=== PATIENT | male | born 1960 | race Caucasian/White ===

== ENCOUNTER 2017-05-17 10:31 | Day surgery (SDC) | payer OTHER ==
[2017-05-17] VITALS (9 sets, daily range): BP systolic 128–162; BP diastolic 70–96; PULSE 75–86; RESP 12–17; O2SAT 95–98
[~2017-05-17] VITALS: Ht 177.8 cm; Wt 83.4 kg
[~2017-05-17 10:31] MED LIST: CALC0.257 PO; CeFAZolin 2 Gm/50 mL D5W IV Premix IV SCH; HSC.125T PO; LEVO137T2 PO; Lactated Ringer's 1,000 ML IV SCH; PANT20T PO; TAMS0.4C29 PO; TERB30CR15 TOPICAL; ZOLP5TAB6 PO
[2017-05-17] MEDS ORDERED: fentaNYL-PF 50 mCg/mL 2 mL Inj ONE (10:32)
[2017-05-17] MEDS ORDERED: Dexamethasone 4 mg/mL Inj ONE (10:32)
[2017-05-17] MEDS ORDERED: MetoCLOpramide 5 mg/mL 2 mL Inj ONE (10:32)
[2017-05-17] MEDS ORDERED: Ondansetron 2 mg/mL 2 mL Inj ONE (10:32)
[2017-05-17] MEDS: Lactated Ringer's 1,000 ML IV SCH ×2 (11:42→12:56)
[2017-05-17] MEDS ORDERED: Lactated Ringer's 1,000 ML IV SCH (13:11)
[2017-05-17] MEDS ORDERED: Lactated Ringer's 500 ML IV PRN (13:11)
[2017-05-17] MEDS ORDERED: Lidocaine PF 1% 30 mL Inj INFILTRATE ONE (13:13)
[2017-05-17] MEDS ORDERED: Ropivacaine-PF 0.5% 30 mL Inj INFILTRATE ONE (13:14)
[2017-05-17] MEDS ORDERED: Ondansetron 2 mg/mL 2 mL Inj IVPUSH PRN (13:15)
[2017-05-17] MEDS ORDERED: Atropine 0.4 mg/mL Inj IVPUSH PRN (13:15)
[2017-05-17] MEDS ORDERED: Phenylephrine 10,000 mCg/mL Inj IVPUSH PRN (13:15)
[2017-05-17] MEDS ORDERED: Labetalol 5 mg/mL 20 mL Inj IV PRN (13:15)
[2017-05-17] MEDS ORDERED: MetoCLOpramide 5 mg/mL 2 mL Inj IVPUSH PRN (13:15)
[2017-05-17] MEDS ORDERED: EPHEDrine Sulfate 50 mg/mL Inj IVPUSH PRN (13:15)
[2017-05-17] MEDS ORDERED: fentaNYL-PF 50 mCg/mL 2 mL Inj IVPUSH PRN (13:15)
--- NOTE | 2017-05-17 13:34 | PCM.HPANE ---
Patient Data Surgeon Admitting Provider: Attending Provider:Donnie Garcia MD Primary Care Physician:Sommer Keyes MD Other Provider:Noemy Minaingham Anesthesia Reason for Visit Right Meniscal Tear Ht/WT & BMI Height (Feet): 5 Height (Inches): 10.00 Weight (Kilograms): 83.400 Body Mass Index 26.00 Allergies Coded Allergies: morphine (Verified Allergy, Severe, Nausea,Vomiting, 05/11/17) PER PT Past Anesthesia History Anesthesia History: Denies:: Abnormal Airway, Anesthesia Reactions, Difficult Intubation, Fam Anesthesia Reaction, Fam Malignant Hypertherm, Malignant Hyperthermia Diabetes History Hx Diabetes?: No MRSA MRSA: No Medications Home Meds Incl Beta Alexi: No Reported Medications Terbinafine Cream 30 Gm Cream..g.1 Applic TOPICAL #30 GM 05/11/17 Hyoscyamine Sulfate (Levsin)0.125 Mg Tab0.125 Mg PO 05/11/17 Calcitriol (Rocaltrol)0.25 Mcg Capsule0.5 Mcg PO 06/16/16 Zolpidem 5 Mg [id number] Mg PO HS PRN For Insomnia 04/21/15 Tamsulosin ER 0.4 Mg Cap.er.24h0.4 Mg PO DAILY 30 Days Ref 0 04/21/[address] (Protonix)20 Mg [id number] Mg PO DAILY 30 Days Ref 0 04/21/15 Levothyroxine 137 Mcg [id number] Mcg PO DAILY 30 Days Ref 0 04/21/15 Discontinued Reported Medications Hydrocodone-Acetaminophen 5-325 mg 1 Each Tablet1 Each PO Q4 PRN For Pain Ref 0 04/21/15 History History of ENT Problems?: No HEENT History: Denies:: Abnormal Airway Cataracts Difficult Intubation Dysphagia Glaucoma Hearing Problem Sinus Problem TMJ Denture Type: None Teeth Condition: Within Normal Limits Hx of Heart Problems?: No Cardiovascular History: Denies:: AICD Abdominal Aortic Aneurism Atrial Fibrillation Cardiac Surgery Chest Pain Congestive Heart Failure Coronary Artery Disease Edema Heart Murmur Hypertension Irregular Heartbeat Pacemaker Peripheral Vascular Rheumatic Fever Thrombophlebitis Valvular Heart Disease Hx of Respiratory Problem?: No Respiratory History: Denies:: Asthma COPD Chest Surgery Cough Dyspnea Emphysema Hemoptysis Oxygen Administration Pneumonia Pulmonary Embolism Tuberculosis Use of C-PAP Machine Use of Inhalers / NEBS Hx Neurologic Problems?: No Neurological History: Denies:: Alzheimer's Disease CVA Dementia Dizziness Headaches Multiple Sclerosis Parkinson's Disease Peripheral Neuropathy Seizures TIA Hx of GI Problems?: Yes Gastrointestinal History: Positive for:: Gastroesphageal Reflux (mild, able to lay flat when sleeping without any heartburn) Denies:: Cirrhosis Diverticulitis Gall Bladder Disease Gastrointestinal Bleeding Heartburn Hepatitis Hiatal Hernia Liver Disease Rectal Bleeding Hx of Problems?: No Genitourinary History: Denies:: HX of Hemodialysis Kidney Stones Urinary Tract Infection HX of Peritoneal Dialysis: No Male Hx: Denies:: Prostate Problems Scrotal Mass Testicular Surgery Skin History: Denies:: History Skin Disorders? Pressure Ulcers Hx Musculoskeletal Problems?: No Musculoskeletal History: Denies:: Back Injury Degenerative Joint Fibromyalgia Joint Replacement Musculoskeletal Trauma Myasthenia Gravis Osteoarthritis Rheumatoid Arthritis Systemic Lupus Hx of Psycho/Social Problems?: No Psycho Social History: Denies:: Anxiety Bipolar Disorder Hx Depression Suicide Attempt Hx Surgeries?: Yes (SPLENECTOMY, THYROIDECTOMY, CLAVICLE BX) Hx Any Other Health Problems?: No Other History: Positive for:: [facility] Hospitalization ([facility]) Denies:: Thyroid Disease (removed) History Blood Transfusions: Positive for:: Accept Blood Products? Denies:: Blood Transfusions Hx Diabetes: No Hx Alcohol Use: NoHx Substance Use: No Smoking Status: Never Smoker Stop/Bang S-Snoring: Do You Snore Loudly: No T-Tired: feel tired, fatigued: Yes O-Obsered: Observed not breath: No P-Blood Pressure: treated: No B- Body Mass Index > 35 kg/m2: No A- Age over 50: Yes N- Neck Large Circumference: No G- Gender Male: Yes MARGARETTE Total Score: 3 Risk Assessment Category Category 1A: Patient has history of documented sleep apnea, and HAS NOT received any narcotic, sedative or anesthesia administration during this stay. Category 1B: Patient has history of documented sleep apnea, and HAS received any narcotic , sedative or anesthesia administration during this stay Category 2: Patient has SUSPECTED Obstructive Sleep Apnea, and HAS received any narcotic , sedative or anesthesia administration during this stay. Category 3: Patient has SUSPECTED Obstructive Sleep Apnea and HAS NOT received narcotic, sedative or anesthesia administration during this stay. Category 4: Outpatient in Procedural Areas with known sleep apnea or who screen positive for High Risk via the STOP/BANG questionnaire. Exam Exam Vital Signs Vital Signs Date Time Temp Pulse Resp B/P Pulse Ox O2 Delivery O2 Flow Rate FiO2 05/17/17 10:57 36.5 78 15 128/70 95 Room Air General Appearance: Alert, Oriented X3, Cooperative, No Acute Distress HEENT/AIRWAY: MP 2, Neck Movement (FROM), Mouth Opening (3 FBMO) Lungs: Clear to Auscultation, Normal Air Movement Heart: Exam Unremarkable, Regular Rate/Rhythm, No Murmurs/Rubs/Gallops Meds/Labs/Diagnostics Admission Meds Current Medications Lactated Ringer's (Lr) 1,000 ml @ 120 mls/hr Q8H20M IV Last administered on t 11:42; Start 05/17/17 at 05:00; Stop 05/17/17 at 13:19 Plan Impression Patient chart reviewed, patient interviewed and anesthestic plan with risks, benefits, and alternatives discussed, and informed consent obtained. NPO per Anesth. Guidelines: Yes ASA Physical Status: ASA2 Mod Systemic Disease Anesthetic Plan: GA Bene/Risks/Altern/Consents: Yes HP Complete Prior to Induction: Yes Shahab Gonzalez MD May 17, 2017 12:14
[2017-05-17] MEDS ORDERED: HYDROcodone-APAP 5-325 mg Tablet PO PRN (13:45)
[2017-05-17] MEDS ORDERED: Ketorolac 15 mg/mL Inj IVPUSH ONE (13:45)
--- NOTE | 2017-05-17 13:49 | PCM.ORTHOP ---
Orthopedic Operative Report Date of Service: May 17, 2017 Pre Operative Diagnosis Right knee medial and lateral meniscus tear Post Operative Diagnosis Right knee medial meniscus tear, chondromalacia Procedure Right knee arthroscopy, partial medial meniscectomy, chondroplasty, partial synovectomy Surgeon Surgeon: Donnie Garcia MD Assistants: None Indication for Procedure Right knee meniscus tear Findings Per dictation Details of Procedure INDICATIONS: Joaquín Araiza is a 56-year-old male who has had a history of right knee pain. The patient has failed conservative management. X-rays show the tibiofemoral joints to be preserved with mild DJD. MRI was obtained which reveals medial and lateral meniscus tear. The patient has had persistent symptoms and is now brought to the operating room for arthroscopy. The risks, benefits, and alternatives of surgery were discussed with the patient. The risks included but were not limited to infection, bleeding, damage to vessels and nerves, loss of motion, continued pain, re-tear of the meniscus, deep venous thrombosis, and complications due to anesthesia including nerve injury, myocardial infarction, stroke, , etc. The patient stated understanding of the nature of the surgical procedure and gave written and verbal consent to proceed. PROCEDURE: The patient was brought to the operating room and placed supine on the operating room table. After the administration of general anesthesia the patient was placed in the supine position. Examination of the knee revealed no evident instability with a trace effusion. All prominences were padded with appropriately and neurovascular structures protected. The right knee was confirmed to be the appropriate site following surgical time out. The right lower extremity was examined under anesthesia. Range of motion was 0-135 degrees. There was no varus or valgus or anterior or posterior instability. The right lower extremity was then prepped and draped in the usual fashion. Sterile prep and drape was then undertaken of the knee. The knee joint was injected with 20 ccs of 1% Lidocaine, along with 3 ccs of 1 % lidocaine in the medial and lateral portal sites respectively. A standard anterolateral parapatellar stab wound was created. The knee joint was entered with a blunt- tipped obturator, followed by the 30-degree video arthroscope. An anteromedial portal was established under arthroscopic control. A routine arthroscopic survey was performed. The patellofemoral joint showed grade 2/3 chondromalacia which was debrided down to stable tissue with a shaver. The medial joint space was then entered. The articular surfaces showed grade 2/ 3 chondromalacia. A degenerative posterior horn and body medial meniscal tear was noted with a small flap. The shaver and the cutting instruments were inserted, and a debridement of the meniscus back to healthy tissue was then undertaken. The ACL and PCL were noted to be intact. The lateral joint space was then entered. The articular surfaces were intact with grade 2/3 chondromalacia. There was some degenerative fraying but otherwise stable status of the lateral meniscus. The loose body was noted underneath the meniscus which was removed with the shaver. A combination of the shaver and cutting instruments were then inserted and a debridement of this tissue down to stable tissue was undertaken. Moderate synovitis was noted anteriorly in the medial and lateral compartment and debrided with a shaver. The knee was irrigated with an additional 2 liters of lactated Ringer's solution. Excess fluid was drained. The portals were closed with 3-0 nylon as well as xeroform. The knee was injected with 20 mL of 0.5% ropivacaine. A dry sterile dressing was applied, followed by an TAIWO hose, soft roll, and PARDEEP bandage. The patient was awakened in the operating room and transported to the recovery room in satisfactory condition. The patient appeared to tolerate the procedure well. At the completion of surgery the patient had soft compartments , palpable pulses, and brisk capillary refill. There were no complications noted. Please keep dressing clean dry and intact. Do not remove dressing until follow- up in clinic. If the dressing become soaked, you may remove the outer gauze and placed Band-Aids on the wounds. You may weight-bear as tolerated and maintain motion of your knee by bending it daily. You will follow up in clinic in 10-14 days for suture removal, and placement of new Steri-Strips. You will follow-up with me in clinic, and we will start physical therapy if needed. You will follow-up with me with PA at 6 weeks postop and 12 weeks postop and will be released after that if improved. Please keep the affected extremity elevated when possible. Please take aspirin as prescribed. You may use ice and/or heat as needed for comfort. (preferably ice during the first 48- 72 hours) Please feel free to call with any further questions, comments, and/or concerns. Grafts, Implants: None Complications There were no periprocedural complications identified. Condition Stable Anesthetic Administered: GA Catheters: None Output, Estimated Blood Loss: 5 Blood Admin during surgery: No Surgical Cast or Splint: Other Surgical Specimen Removed: No Specimen sent to Pathology: No copies to: Donnie Garcia MD, Christopher L MD May 17, 2017 13:49
--- NOTE | 2017-05-17 14:04 | PCM.ANEP1 ---
Post Anesthesia PACU Phase 1 Assessment Vital Signs Vital Signs Date Time Temp Pulse Resp B/P Pulse Ox O2 Delivery O2 Flow Rate FiO2 05/17/17 13:55 80 17 154/86 97 Simple Mask 10 05/17/17 13:50 37.0 75 12 150/96 98 Simple Mask 10 05/17/17 10:57 36.5 78 15 128/70 95 Room Air Anesthetic Administered: GA Level of Alertness: Awake, talking STEVENS's with Equal Strength: Yes Pain: No Nausea or Vomiting: No CV Function & Hydration Stable: Yes Airway Device: n/a Oxygen Delivery: Room Air Lungs: Clear to Auscultation, Normal Air Movement Dermatome Level: Full Sensation PACU Phase 2 Assessment Complications: No Follow up Care: N/A Patient Instructions Provided: N/A Shahab Gonzalez MD May 17, 2017 14:04
== END 2017-05-17 23:59 | disposition home or self-care (01) ==
LOC: SAS 10:31
PROVIDERS: ATTEND Orthopaedic Surgery
DX: M23.221 Derangement of posterior horn of medial meniscus due to old tear or injury, right knee (principal); M22.41 Chondromalacia patellae, right knee; M65.9 Synovitis and tenosynovitis, unspecified; E03.9 Hypothyroidism, unspecified; K21.9 Gastro-esophageal reflux disease without esophagitis; G89.29 Other chronic pain; M54.31 Sciatica, right side; Z87.442 Personal history of urinary calculi; Z85.72 Personal history of non-Hodgkin lymphomas
CPT/HCPCS: 29881; J0690; J1100; J2405; J2765; J2795; J3010; J7120